=== PATIENT | male | born 1985 | race Caucasian/White ===

== ENCOUNTER 2017-06-06 14:14 | Emergency (ER) | payer MEDICAID, OTHER ==
[2017-06-06] MEDS ORDERED: FLUORESCEIN SODIUM 1 MG STRIP OP ONE (15:08)
[2017-06-06] MEDS ORDERED: PROPARACAINE 0.5% 15 ML OPHT DROP ONE (15:08)
--- NOTE | 2017-06-06 15:27 | EDPHY ---
H & P Stated Complaint: Eyes are irritated;also wants refill Alprazolan Time Seen by Provider: 06/06/17 15:25 HPI/ROS: CHIEF COMPLAINT: Eye pain. HISTORY OF PRESENT ILLNESS: This patient is a 32 year old individual, identifying as female, complaining of bilateral eye pain and watery discharge greater in the left eye than the right, onset earlier today. She states someone else has recently had a similar infection. She endorses subjective fever, sinus congestion and drainage. She does not currently wear contacts or corrective lenses, although they have been prescribed. She has not had change in vision. No eye trauma. She does not have a foreign body sensation. She denies headache. The patient also has anxiety, and states her prescription for Alprazolam ran out a couple months ago. She states she has "anxiety so bad my chest hurts" but has not been able to fill her prescription, as she was released from snf 3 days ago. The patient is staying at the local alf, and does not have a primary care physician yet. REVIEW OF SYSTEMS: A ten point review of systems was performed and is negative with the exception of the items mentioned in the HPI. - Personal History Current Tetanus Diphtheria and Acellular Pertussis (TDAP): Yes Tetanus Vaccine Date: 5 years - Medical/Surgical History PMH: 1. Bipolar 2. Anxiety 3. Chronic back pain 4. Insomnia 5. Kidney stones Hx Asthma: No Hx Chronic Respiratory Disease: No Hx Diabetes: No Hx Cardiac Disease: No Hx Renal Disease: No Hx Cirrhosis: No Hx Alcoholism: No Hx HIV/AIDS: No Hx Splenectomy or Spleen Trauma: No Other PMH: Bipolar, chronic back pain, anxiety, insomnia, KIDNEY STONES - Social History Smoking Status: Current every day smoker Additional Social History: Staying at the [facility]. - Physical Exam Exam: General Appearance: Alert. Vital signs reviewed. Blood pressure 143/90, heart rate 118 at triage. Eyes: Visual Acuity: noted from Nurse's notes. Patient stated that she was unable to read the vision chart but she is able to read printed material, easily identified and counts fingers. Pupils:equal round and reactive to light, EOMI Lids: no edema or swelling Skin: no proptosis, no periorbital erythema or swelling, no vesicles Conjunctivae: Injected bilaterally, no discharge Cornea: exam with fluorescein shows no corneal abrasion. Anterior chamber: normal, no hyphema or hypopyon ENT, Mouth: Dry oral mucosa, no oropharyngeal erythema or edema. Bilateral maxillary sinus tenderness. Neck: No lymphadenopathy, supple. Respiratory: Lungs are clear to auscultation; no wheezes, rales, or rhonchi. Cardiovascular: Mildly tachycardic; no murmur, rub, or gallop. Gastrointestinal: Abdomen is soft and nontender, no masses or organomegaly, bowel sounds normal. Skin: Warm and dry, no rashes on exposed skin, normal color. Back: Nontender to palpation over the thoracolumbar spine. No CVAT. Neurological: Alert and oriented. Moving all four extremities easily and equally. Psychiatric: Somewhat anxious affect. Constitutional: Initial Vital Signs Temperature (C) 37.7 C 06/06/17 14:28 Heart Rate 118 H 06/06/17 14:28 Respiratory Rate 18 06/06/17 14:28 Blood Pressure 143/90 H 06/06/17 14:28 O2 Sat (%) 95 06/06/17 14:28 O2 Delivery Mode Room Air Allergies/Adverse Reactions: No Known Allergies Allergy (Verified 06/06/17 14:24) Home Medications: Medication Instructions Recorded Zolpidem Tartrate [Ambien 5MG (*)] 10 mg PO HS PRN #10 tab 04/29/15 ALPRAZolam [Xanax 1 MG (*)] 1 mg PO TID PRN 11/04/16 Atomoxetine HCl [Strattera] 100 mg PO DAILY 11/04/16 Bupropion HCl [Wellbutrin Sr] 200 mg PO BID 11/04/16 Finasteride [Proscar 5 MG (*)] 5 mg PO HS 11/04/16 Spironolactone 50 mg PO BID 11/04/16 Trihexyphenidyl HCl 5 mg PO BID 11/04/16 Venlafaxine HCl [Venlafaxine 75MG 150 mg PO DAILY 11/04/16 (*)] Estradiol [Estrace] 2 mg PO BID #10 tablet 11/05/16 Pregabalin [Lyrica] 300 mg PO BID #10 capsule 11/05/16 AZITHROMYCIN [Z-PACK] 250 mg PO DAILY #6 tab 06/06/17 Zolpidem Tartrate [Ambien] 5 mg PO HS #3 tablet 06/06/17 Medical Decision Making ED Course/Re-evaluation: This patient is a 32 year old individual presenting with bilateral eye pain and watery discharge. Physical exam reveals conjunctival injection bilaterally, worse on the left than on the right. No evidence of retained foreign body, corneal abrasion, keratitis, iritis on exam. Suspect viral conjunctivitis, possible sinus infection. We discussed the likelihood of both of these problems being a viral. She does report subjective fever and persistence of sinus symptoms. Plan to discharge home in good condition with prescription for Zithromax to treat sinus symptoms. I do not think that she needs antibiotic eyedrops. She is wearing eye makeup and I have recommended that she not were eye makeup as long she has this infection. We also discussed symptomatic treatment. The patient will follow up with [facility] to establish care and management of medications. Case management involved. She is requesting a prescription for benzodiazepines to treat her anxiety. I have declined to write a prescription. The patient is comfortable with this plan. Departure - Departure Disposition: Home, Routine, Self-Care Clinical Impression: Viral conjunctivitis of both eyes Sinusitis Qualifiers: Sinusitis location: maxillary Chronicity: subacute Qualified Code(s): J01.00 - Acute maxillary sinusitis, unspecified Condition: Good Instructions: Sinusitis (ED), Conjunctivitis (ED) Additional Instructions: 1. Take your antibiotics as prescribed for sinusitis. It is important to finish your entire course of antibiotics. 2. Follow up with [facility] tomorrow to discuss your medication regimen. Follow up with a primary care provider at the [facility] if needed for primary care to establish care. Contact information for the clinic is attached. 3. Return to the emergency department if you develop changes in your vision or other worsening of condition. [facility] [address] [place] [id number] Please arrive as close to 8:00 AM as possible for a walk-in intake appointment Referrals: [facility],. [Clinic] - As per Instructions Prescriptions: AZITHROMYCIN [Z-PACK] 250 mg PO DAILY #6 tab Zolpidem Tartrate [Ambien] 5 mg PO HS #3 tablet Report Scribed for: Destiny Rangel Report Scribed by: Erika Orellana Date of Report: 06/06/17 Time of Report: 15:51 Physician Review and Approval Statement: 06/06/17 15:26 Portions of this note were transcribed by the director medical surgical. I, Dr. Destiny Rangel, personally performed the history, physical exam, and medical decision- making; and confirmed the accuracy of the information in the transcribed note.
[2017-06-06 16:23] VITALS: BP 139/86; PULSE 99; RESP 16; TEMP 99; O2SAT 94
== END 2017-06-06 16:23 | disposition home or self-care (01) ==
DX: B30.9 Viral conjunctivitis, unspecified (principal); J01.00 Acute maxillary sinusitis, unspecified; F17.200 Nicotine dependence, unspecified, uncomplicated

== ENCOUNTER 2017-06-13 06:01 | Emergency (ER) | payer MEDICAID ==
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
[2017-06-13] MEDS ORDERED: IBUPROFEN 600 MG TAB PO ONE (06:31)
[2017-06-13] MEDS ORDERED: ACETAMINOPHEN 500 MG TAB PO ONE (06:37)
[2017-06-13 07:28] LABS: % IMMATURE GRANULYOCYTES 0.6 % (0.0-1.1); ABSOLUTE IMMATURE GRANULOCYTES 0.06 10^3/uL (0.00-0.10); ADD DIFF? NO; ADD MORPH? NO; ADD SCAN? NO; ATYPICAL LYMPHOCYTE FLAG 10 (0-99); FRAGMENT RBC FLAG 0 (0-99); HEMATOCRIT 44.9 % (40.0-51.0); HEMOGLOBIN 15.5 g/dL (13.7-17.5); LEFT SHIFT FLG 0 (0-99); LIPEMIA HEMOLYSIS FLAG 90 (0-99); MEAN CELL HEMOGLOBIN 30.4 pg (27.9-34.1); MEAN CELL HEMOGLOBIN CONCENTR. 34.5 g/dL (32.4-36.7); MEAN PLATELET VOLUME 10.4 fL (8.7-11.7); PLATELET CLUMPS FLAG 0 (0-99); PLATELET COUNT 288 10^3/uL (150-400); RED CELL DISTRIBUTION WIDTH 11.9 % (11.5-15.2)
[2017-06-13] MEDS ORDERED: SPIRONOLACTONE 50 MG TAB PO ONE (07:32)
[2017-06-13] MEDS ORDERED: VENLAFAXINE HCL 75 MG TAB PO ONE (07:33)
[2017-06-13] MEDS ORDERED: PREGABALIN 150 MG CAP PO ONE (07:33)
[2017-06-13] MEDS ORDERED: ATOMOXETINE 25 MG CAP PO ONE (07:34)
[2017-06-13] MEDS ORDERED: ESTRADIOL 1 MG TAB PO ONE (07:34)
[2017-06-13] MEDS ORDERED: buPROPion SR 150 MG TAB PO ONE (07:36)
[2017-06-13 07:46] LABS: ANION GAP 10 mEq/L (8-16); CALCIUM 9.2 mg/dL (8.5-10.4); CARBON DIOXIDE 23 mEq/l (22-31); CHLORIDE 109 mEq/L (97-110); CREATININE 0.8 mg/dL (0.7-1.3); ETHANOL SERUM < 10 mg/dL (0-10); GLOMERULAR FILTRATION RATE > 60; GLUCOSE 95 mg/dL (70-100); POTASSIUM 4.2 mEq/L (3.5-5.2); SODIUM 142 mEq/L (134-144)
[2017-06-13] MEDS ORDERED: buPROPion SR 100 MG TAB PO ONE (08:00)
[2017-06-13] MEDS ORDERED: NICOTINE 14 MG/24 HR PATCH TD ONE (11:46)
[2017-06-13] MEDS ORDERED: NICOTINE 21 MG/24 HR PATCH TD ONE ×2 (11:55→11:58)
[2017-06-13 17:43] VITALS: BP 126/88; PULSE 70; RESP 18; TEMP 97.9; O2SAT 95
== END 2017-06-13 17:43 | disposition home or self-care (01) ==
LOC: EDUNIT#
DX: S93.504A Unspecified sprain of right lesser toe(s), initial encounter (principal); F17.200 Nicotine dependence, unspecified, uncomplicated; W20.8XXA Other cause of strike by thrown, projected or falling object, initial encounter
CPT/HCPCS: 80305; G0480

== ENCOUNTER 2017-06-14 11:02 | Emergency (ER) | payer MEDICAID ==
[2017-06-14 11:13] VITALS: BP 148/92; PULSE 87; RESP 18; TEMP 97.5; O2SAT 97
--- NOTE | 2017-06-14 12:02 | EDPHY ---
H & P Stated Complaint: Sent from [facility] for RX Ambien & Xanax;wants blister on foot checked Time Seen by Provider: 06/14/17 11:47 HPI/ROS: CHIEF COMPLAINT: Requesting prescriptions HISTORY OF PRESENT ILLNESS: The patient is a 32 y/o male arriving from the [facility] complaining of withdrawal from all his medications stating, "they won't write prescriptions for the Xanax or Ambien so they sent me here." He states they will prescribe all of his other medications. He complains of sweating, myalgias, and feeling "like crap." He was seen here yesterday for right small toe pain and depression and was discharged voluntarily to the [facility]. No SI/HI. REVIEW OF SYSTEMS: Constitutional: No fever, no chills Eyes: No visual changes ENT: No sore throat Respiratory: No cough, no shortness of breath Cardiac: No chest pain Gastrointestinal: No nausea, no vomiting, no abdominal pain Genitourinary: No hematuria, no dysuria Musculoskeletal: No leg pain or swelling Skin: No rash Neurological: No headache, no numbness, no weakness Psychiatric: see HPI - Personal History Current Tetanus Diphtheria and Acellular Pertussis (TDAP): Yes Tetanus Vaccine Date: 5 years - Medical/Surgical History PMH: Bipolar, substance abuse Hx Asthma: No Hx Chronic Respiratory Disease: No Hx Diabetes: No Hx Cardiac Disease: No Hx Renal Disease: No Hx Cirrhosis: No Hx Alcoholism: No Hx HIV/AIDS: No Hx Splenectomy or Spleen Trauma: No Other PMH: Bipolar, chronic back pain, anxiety, insomnia, KIDNEY STONES, adhd - Social History Smoking Status: Current every day smoker Additional Social History: Homeless, transgender, smoker, currently living at [facility]. - Physical Exam Exam: General Appearance: Alert, well-appearing Eyes: Pupils equal and round ENT, Mouth: Mucous membranes moist Neck: Normal inspection Respiratory: Lungs are clear to auscultation Cardiovascular: Regular rate and rhythm Neurological: A&O, nonfocal, normal gait Skin: Warm and dry, no rash Extremities: normal inspection Psychiatric: flat affect Constitutional: Initial Vital Signs Temperature (C) 36.4 C 06/14/17 11:10 Heart Rate 87 06/14/17 11:10 Respiratory Rate 18 06/14/17 11:10 Blood Pressure 148/92 H 06/14/17 11:10 O2 Sat (%) 97 06/14/17 11:10 O2 Delivery Mode Room Air Allergies/Adverse Reactions: ibuprofen Allergy (Verified 06/14/17 11:09) Home Medications: Medication Instructions Recorded Atomoxetine HCl [Strattera] 100 mg PO DAILY 11/04/16 Bupropion HCl [Wellbutrin Sr] 200 mg PO BID 11/04/16 Spironolactone 50 mg PO BID 11/04/16 Venlafaxine HCl [Venlafaxine 75MG 150 mg PO DAILY 11/04/16 (*)] Estradiol [Estrace] 2 mg PO BID #10 tablet 11/05/16 Pregabalin [Lyrica] 300 mg PO BID #10 capsule 11/05/16 Emtricitabine/Tenofovir [Truvada 1 tab PO DAILY #28 tab 06/13/17 200MG/300MG (*)] Raltegravir [Isentress] 400 mg PO BID #28 tab 06/13/17 Medical Decision Making ED Course/Re-evaluation: This is a well-appearing 32 y/o male requesting refills for Ambien and Xanax. His exam is unremarkable without objective evidence of withdrawal. I discussed his situation with case management. She will with him to get outpatient follow up arranged today at [facility]. Patient agrees with this plan and will be discharged in good condition. Departure - Departure Disposition: Home, Routine, Self-Care Clinical Impression: Anxiety Condition: Good Instructions: Anxiety (ED) Additional Instructions: Follow up with [facility] today. Please be advised the Emergency Department does not prescribe controlled substances for chronic conditions. Follow up with mental health and withdrawal services as directed by disease case manager rn. [facility] Crisis Line: [phone] [facility] [phone] Referrals: NONE *PRIMARY CARE P,. [Primary Care Provider] - As per Instructions [facility],. [Clinic] - As per Instructions Report Scribed for: Amira Panchal Report Scribed by: Priya Gao Date of Report: 06/14/17 Time of Report: 12:02 Physician Review and Approval Statement: 06/14/17 12:02 Portions of this note were transcribed by a medical parasitologist. I personally performed a history, physical exam, medical decision making, and confirmed accuracy of information the transcribed note.
== END 2017-06-14 13:03 | disposition home or self-care (01) ==
DX: F41.9 Anxiety disorder, unspecified (principal); F17.200 Nicotine dependence, unspecified, uncomplicated

== ENCOUNTER 2017-08-22 20:34 | Emergency (ER) | payer MEDICAID ==
--- NOTE | 2017-08-22 20:45 | EDPHY ---
H & P HPI/ROS: HPI CHIEF COMPLAINT: Suicidal ideation HISTORY OF PRESENT ILLNESS: This patient 32-year-old male, history of bipolar disorder on his medications, history of anxiety and depression, presents to the emergency room suicide ideation. He states that he was driving by and saw that it said emergency on the building and checked into the emergency room stating that he suicidal plan to cut his wrist. He has been on M1 hold before. He is homeless. Patient denies any ingestion of substance. Denies alcohol or drugs. Past Medical History: Bipolar disorder, anxiety, depression, hormone replacement, transitioning male to female. Past Surgical History: No recent surgery Social History: Denies illicit drugs, or alcohol. Does smoke tobacco. Family History: Noncontributory ROS REVIEW OF SYSTEMS: A comprehensive 10 point review of systems is otherwise negative aside from elements mentioned in the history of present illness. Exam Constitutional triage nursing summary reviewed, vital signs reviewed, awake/ alert. Eyes normal conjunctivae and sclera, EOMI, PERRLA. HENT normal inspection, atraumatic, moist mucus membranes, no epistaxis, neck supple/ no meningismus, no raccoon eyes. Respiratory clear to auscultation bilaterally, normal breath sounds, no respiratory distress, no wheezing. Cardiovascular rate normal, regular rhythm, no murmur, no edema, distal pulses normal. Gastrointestinal soft, non-tender, no rebound, no guarding, normal bowel sounds, no distension, no pulsatile mass. Genitourinary no CVA tenderness. Musculoskeletal no midline vertebral tenderness, full range of motion, no calf swelling, no tenderness of extremities, no meningismus, good pulses, neurovascularly intact. Skin pink, warm, & dry, no rash, skin atraumatic. Neurologic awake, alert and oriented x 3, AAOx3, moves all 4 extremities equally, motor intact, sensory intact, CN II-XII intact, normal cerebellar, normal vision, normal speech. Psychiatric flat affect, suicidal Heme/Lymph/Immune no lymphadenopathy. Differential Diagnosis: Includes but is not limited to in a particular order suicidal ideation, bipolar disorder, depression, anxiety, mood disorder, substance abuse. Medical Decision Making: Plan for this patient blood draw for medical clearance. And then patient be transferred over to [facility] emergency room on M1 hold. Patient cannot stay here on M1 hold as we do not have the appropriate resources in staff and security. I placed the patient on M1 hold. I have set up transfer from [facility] ER to [facility] emergency room. Dr. Amira Panchal the attending at [facility] ER has accepted the patient. Re-evaluation: 2044: Spoke with Wicho manuel RN at [facility]. They are not on psychiatric divert. Appropriate transfer will be set up. 2049: Patient on m1 hold for SI. Transfer set up. M1 Filled out. I have updated the patient this time he agrees for this plan. M1 hold. Transfer to [facility] ER. Additionally patient reports that he just was released from half-way. Source: Patient - Personal History Tetanus Vaccine Date: 5 years - Medical/Surgical History Hx Asthma: No Hx Chronic Respiratory Disease: No Hx Diabetes: No Hx Cardiac Disease: No Hx Renal Disease: No Hx Cirrhosis: No Hx Alcoholism: No Hx HIV/AIDS: No Hx Splenectomy or Spleen Trauma: No Other PMH: Bipolar, chronic back pain, anxiety, insomnia, KIDNEY STONES, adhd - Social History Smoking Status: Current every day smoker Constitutional: Initial Vital Signs Temperature (C) 36.8 C 08/22/17 20:47 Heart Rate 114 H 08/22/17 20:47 Respiratory Rate 16 08/22/17 20:47 Blood Pressure 126/82 H 08/22/17 20:47 O2 Sat (%) 96 08/22/17 20:47 O2 Delivery Mode Room Air Allergies/Adverse Reactions: ibuprofen Allergy (Verified 06/14/17 11:09) Home Medications: Medication Instructions Recorded Atomoxetine HCl [Strattera] 100 mg PO DAILY 11/04/16 Bupropion HCl [Wellbutrin Sr] 200 mg PO BID 11/04/16 Spironolactone 50 mg PO BID 11/04/16 Estradiol [Estrace] 2 mg PO BID #10 tablet 11/05/16 Pregabalin [Lyrica] 300 mg PO BID #10 capsule 11/05/16 Emtricitabine/Tenofovir [Truvada 1 tab PO DAILY #28 tab 06/13/17 200MG/300MG (*)] Raltegravir [Isentress] 400 mg PO BID #28 tab 06/13/17 Abilify 08/22/17 Departure - Departure Disposition: [facility] Clinical Impression: Suicidal ideation Condition: Fair Referrals: NONE *PRIMARY CARE P,. [Primary Care Provider] - As per Instructions
[2017-08-22 21:08] LABS: % IMMATURE GRANULYOCYTES 0.7 % (0.0-1.1); ABSOLUTE IMMATURE GRANULOCYTES 0.05 10^3/uL (0.00-0.10); ADD DIFF? NO; ADD MORPH? NO; ADD SCAN? NO; ATYPICAL LYMPHOCYTE FLAG 0 (0-99); FRAGMENT RBC FLAG 0 (0-99); HEMATOCRIT 44.5 % (40.0-51.0); HEMOGLOBIN 15.7 g/dL (13.7-17.5); LEFT SHIFT FLG 0 (0-99); LIPEMIA HEMOLYSIS FLAG 90 (0-99); MEAN CELL HEMOGLOBIN 31.5 pg (27.9-34.1); MEAN CELL HEMOGLOBIN CONCENTR. 35.3 g/dL (32.4-36.7); MEAN CELL VOLUME 89.2 fL (81.5-99.8); MEAN PLATELET VOLUME 10.1 fL (8.7-11.7); PLATELET CLUMPS FLAG 0 (0-99); PLATELET COUNT 305 10^3/uL (150-400); RED BLOOD CELL COUNT 4.99 10^6/uL (4.40-6.38); RED CELL DISTRIBUTION WIDTH 12.5 % (11.5-15.2)
[2017-08-22 21:21] LABS: ANION GAP 13 mEq/L (8-16); CALCIUM 9.3 mg/dL (8.5-10.4); CARBON DIOXIDE 27 mEq/l (22-31); CHLORIDE 101 mEq/L (97-110); CREATININE 0.8 mg/dL (0.7-1.3); GLOMERULAR FILTRATION RATE > 60; GLUCOSE 137 mg/dL (70-100); POTASSIUM 3.6 mEq/L (3.5-5.2); SODIUM 141 mEq/L (134-144)
[2017-08-22 23:31] VITALS: O2SAT 95
--- NOTE | 2017-08-23 05:50 | EDPHY ---
H & P Stated Complaint: pt. states suicidal thoughts for 4-5 days, states cutting Source: Patient, Old records - Personal History Tetanus Vaccine Date: 5 years - Medical/Surgical History Hx Asthma: No Hx Chronic Respiratory Disease: No Hx Diabetes: No Hx Cardiac Disease: No Hx Renal Disease: No Hx Cirrhosis: No Hx Alcoholism: No Hx HIV/AIDS: No Hx Splenectomy or Spleen Trauma: No Other PMH: Bipolar, chronic back pain, anxiety, insomnia, KIDNEY STONES, adhd - Social History Smoking Status: Current every day smoker HPI/ROS: HPI The patient presents with suicidal ideation, transferred from [facility] on a mental health hold. Apparently, she drove past the emergency department there and thought that he would stopping get checked out because he was feeling suicidal. She does have a history of suicidal ideation in the past , he is recently incarcerated.. REVIEW OF SYSTEMS Constitutional: No fever, no chills. Eyes: No discharge. ENT: No sore throat. Cardiovascular: No chest pain, no palpitations. Respiratory: No cough, no shortness of breath. Gastrointestinal: No abdominal pain, no vomiting. Genitourinary: No hematuria. Musculoskeletal: No back pain. Skin: No rashes. Neurological: No headache. PMHx: Bipolar disorder Soc Hx: Recently incarcerated PHYSICAL General Appearance: Alert, no distress Eyes: Pupils equal and round no pallor or injection ENT, Mouth: Mucous membranes moist Respiratory: Breathing comfortably Neurological: A&O, moves all extremities Skin: Warm and dry, no rashes Musculoskeletal: Neck is supple Extremities: symmetrical, full range of motion Psychiatric: Patient is oriented X 3, there is no agitation (Riguzzi,Deann) Constitutional: Initial Vital Signs Temperature (C) 36.8 C 08/22/17 20:47 Heart Rate 114 H 08/22/17 20:47 Respiratory Rate 16 08/22/17 20:47 Blood Pressure 126/82 H 08/22/17 20:47 O2 Sat (%) 96 08/22/17 20:47 O2 Delivery Mode Room Air Allergies/Adverse Reactions: ibuprofen Allergy (Verified 06/14/17 11:09) Home Medications: Medication Instructions Recorded Atomoxetine HCl [Strattera] 100 mg PO DAILY 11/04/16 Spironolactone 50 mg PO BID 11/04/16 Pregabalin [Lyrica] 300 mg PO BID #10 capsule 11/05/16 ARIPIPRAZOLE 10 mg PO DAILY 08/23/17 Atomoxetine HCl [Strattera] 100 mg PO DAILY 08/23/17 Estradiol [Estradiol 1 MG (*)] 3 mg PO BID 08/23/17 FLUoxetine 60 mg PO DAILY 08/23/17 Finasteride [Proscar 5 MG (*)] 5 mg PO DAILY 08/23/17 Venlafaxine 75MG (*) 75 mg PO BID 08/23/17 Zolpidem Tartrate [Ambien 10 mg] 10 mg PO DAILY AT 9PM 08/23/17 buPROPion XL [Wellbutrin Xl] 300 mg PO DAILY 08/23/17 Medical Decision Making ED Course/Re-evaluation: 745: The patient is signed out to me at change of shift by Dr. Li. The patient is awaiting evaluation by Psychiatric Services. I rechecked the patient while here. She was stable. I discussed the case with case management. Patient is no longer suicidal. Patient has been given resources. She feels comfortable with discharge. She was given warnings prior to leaving. (Lottie Craven) Differential Diagnosis: 32-year-old male to female transgender patient presents with suicidal ideation, placed on an M1 hold at [facility] and transferred here for mental health evaluation. Labs are unremarkable. Patient will await mental health evaluation. Differential diagnosis includes suicidal ideation due to bipolar disorder, stress response, substance abuse. In the emergency department, the patient remained stable. Mental health came to evaluate her at about 215 in the morning and was unable to complete interview due to patient sedation. She has not received any medication from us , however may be tired for other reasons. Mental health will return in the a.m. morning later to re-evaluate. (Deann Li) - Data Points Laboratory Results: Laboratory Results 08/22/17 20:52 08/22/17 20:52 08/23/17 08/22/17 07:49 22:45 Urine Opiates Screen NEGATIVE NEGATIVE (NEGATIVE) (NEGATIVE) Urine Barbiturates NEGATIVE NEGATIVE (NEGATIVE) (NEGATIVE) Ur Phencyclidine Scrn NEGATIVE NEGATIVE (NEGATIVE) (NEGATIVE) Ur Amphetamine Screen NEGATIVE NEGATIVE (NEGATIVE) (NEGATIVE) U Benzodiazepines Scrn NEGATIVE NEGATIVE (NEGATIVE) (NEGATIVE) Urine Cocaine Screen NEGATIVE NEGATIVE (NEGATIVE) (NEGATIVE) U Marijuana (THC) Screen NEGATIVE NEGATIVE (NEGATIVE) (NEGATIVE) Medications Given: Aripiprazole (Abilify) 10 mg PO DAILY AUBREY Stop: 02/19/18 08:59 Last Admin: 08/23/17 10:13 Dose: 10 mg Bupropion HCl (Wellbutrin Xl) 300 mg PO DAILY AUBREY Stop: 02/19/18 08:59 Last Admin: 08/23/17 10:16 Dose: 300 mg Estradiol (Estradiol) 3 mg PO DAILY AUBREY Stop: 02/19/18 08:59 Last Admin: 08/23/17 10:15 Dose: 3 mg Finasteride (Proscar) 5 mg PO DAILY AUBREY Stop: 02/19/18 08:59 Last Admin: 08/23/17 10:14 Dose: 5 mg Fluoxetine HCl (Prozac) 60 mg PO DAILY AUBREY Stop: 02/19/18 08:59 Last Admin: 08/23/17 10:13 Dose: 60 mg Pregabalin (Lyrica) 300 mg PO BID AUBREY Stop: 02/19/18 08:59 Last Admin: 08/23/17 10:15 Dose: 300 mg Spironolactone (Aldactone) 50 mg PO DAILY AUBREY Stop: 02/19/18 08:44 Last Admin: 08/23/17 10:48 Dose: Not Given Venlafaxine HCl (Venlafaxine Hcl) 75 mg PO BID AUBREY Stop: 02/19/18 08:59 Last Admin: 08/23/17 10:12 Dose: 75 mg Departure - Departure Disposition: Home, Routine, Self-Care Clinical Impression: Suicidal ideation Condition: Fair Instructions: Depression (ED) Referrals: NONE *PRIMARY CARE P,. [Primary Care Provider] - As per Instructions
[2017-08-23] MEDS ORDERED: ZOLPIDEM TARTRATE 5 MG TAB PO PRN (08:50)
[2017-08-23] MEDS ORDERED: VENLAFAXINE HCL 75 MG TAB PO SCH (09:00)
[2017-08-23] MEDS ORDERED: ARIPiprazole 10 MG TAB PO SCH (09:00)
[2017-08-23] MEDS ORDERED: buPROPion XL 150 MG TAB PO SCH (09:00)
[2017-08-23] MEDS ORDERED: ESTRADIOL 1 MG TAB PO SCH (09:00)
[2017-08-23] MEDS ORDERED: FINASTERIDE 5 MG TAB PO SCH (09:00)
[2017-08-23] MEDS ORDERED: PREGABALIN 150 MG CAP PO SCH (09:00)
[2017-08-23] MEDS ORDERED: FLUoxetine 20 MG CAP PO SCH (09:00)
[2017-08-23] MEDS: SPIRONOLACTONE 50 MG TAB PO SCH ×2 (10:14→10:48)
[2017-08-23 12:52] VITALS: BP 128/74; PULSE 75; RESP 18; TEMP 97.9
== END 2017-08-23 13:07 | disposition home or self-care (01) ==
LOC: CED 20:34
DX: R45.851 Suicidal ideations (principal); F17.200 Nicotine dependence, unspecified, uncomplicated
CPT/HCPCS: 80048-PO; 80305; 85025-PO

== ENCOUNTER 2017-08-23 13:50 | Emergency (ER) | payer MEDICAID ==
[2017-08-23 13:58] VITALS: BP 141/98; PULSE 98; RESP 16; TEMP 98.1; O2SAT 94
[2017-08-23] MEDS ORDERED: PENICILLIN VK 500 MG TAB PO ONE (14:05)
[2017-08-23] MEDS ORDERED: KETOROLAC 30 MG/1 ML SDV IM ONE (14:05)
--- NOTE | 2017-08-23 14:07 | EDPHY ---
H & P Time Seen by Provider: 08/23/17 13:53 HPI/ROS: HPI Toothache. 32-year-old male transgender on foot. He complains of right lower molar tooth pain ongoing for 3 days. Worse today. He was just in our emergency department here and then transferred to [facility] yesterday for suicidal ideations. He was discharged after behavioral health evaluation this morning. He is not suicidal now. There is no history of dental trauma. He reports that he has had this tooth ache in the past. He is asking for pain medication. He has a history of substance abuse. I saw him in our emergency department at the [facility] back in April of 2015. He was brought into the emergency department at that time unresponsive. ROS: Constitutional: No fever, no chills. No weakness. ENT: No sore throat. No nasal congestion or rhinorrhea. As above. Musculoskeletal: No back pain. No neck pain. No myalgias or arthralgias. Skin: No rashes. Neurological: No headache. No focal weakness or altered sensation. Past medical history: Bipolar, chronic back pain, insomnia, attention deficit hyperactivity disorder, kidney stones, chronic pain, substance abuse. Social history: Smoker. Here by himself. Homeless. Denies alcohol. Physical Exam: General Appearance: Alert, no distress. This patient is responding to questions appropriately and in full sentences. This patient appears well- hydrated and well-nourished. Eyes: Pupils equal and round no pallor or injection. No lid edema, erythema or injection. ENT, Mouth: Mucous membranes are moist. The pharyngeal tissues are unremarkable. No edema or swelling. No asymmetry suggestive of abscess. No erythema or exudates. The right lower 3rd molar appears intact. There is no pauly gingival swelling or evidence of abscess. He does have some pain on axial compression of the tooth. No swelling of the buccal mucosa or associated facial swelling. Neurological: Motor sensory function is grossly intact. Cranial nerves are normal. Gait is normal. Skin: Warm and dry, no rashes. Musculoskeletal: Neck is supple and nontender. No cervical or submental lymphadenopathy. Extremities are symmetrical. All joints range without pain or impingement. Psychiatric: No agitation. No depression. Database: EKG: Imaging: Procedures: Emergency department course: Vital signs reviewed. He is afebrile. Vital signs otherwise unremarkable. He was started on penicillin at 500 mg in the emergency department orally. I will prescribe him this medication on discharge. I explained to him that I would not give him any narcotic or opiate related medications. He states that he has an allergy to ibuprofen but is not allergic to Toradol and has had Toradol in the past. He was given 30 mg of intramuscular Toradol. He has normal renal function from his blood work yesterday. He was instructed to follow up with dental aide on Saturday for re-evaluation and further management. Return to emergency department precautions discussed. All of his questions were answered. He was discharged in good condition. Differential Diagnosis: The differential diagnosis on this patient includes but is not limited to toothache, apical abscess. Facial cellulitis, traumatic dental injury unlikely. This represents a partial list of diagnoses considered. These considerations are based on history, physical exam, past history, reassessment and diagnostic testing. Smoking Status: Current every day smoker Constitutional: Initial Vital Signs Temperature (C) 36.7 C 08/23/17 13:55 Heart Rate 98 08/23/17 13:55 Respiratory Rate 16 08/23/17 13:55 Blood Pressure 141/98 H 08/23/17 13:55 O2 Sat (%) 94 08/23/17 13:55 O2 Delivery Mode Room Air Allergies/Adverse Reactions: ibuprofen Allergy (Verified 08/23/17 13:58) Home Medications: Medication Instructions Recorded Spironolactone 50 mg PO BID 11/04/16 Pregabalin [Lyrica] 300 mg PO BID #10 capsule 11/05/16 Estradiol [Estradiol 1 MG (*)] 3 mg PO BID 08/23/17 Finasteride [Proscar 5 MG (*)] 5 mg PO DAILY 08/23/17 Penicillin V Potassium [Penicillin 500 mg PO QID #20 tablet 08/23/17 VK] Zolpidem Tartrate [Ambien 10 mg] 10 mg PO DAILY AT 9PM 08/23/17 buPROPion XL [Wellbutrin Xl] 300 mg PO DAILY 08/23/17 Medical Decision Making - Data Points Medications Given: Discontinued Medications Ketorolac Tromethamine (Toradol) 30 mg IM EDNOW ONE Stop: 08/23/17 14:06 Last Admin: 08/23/17 14:10 Dose: 30 mg Penicillin V Potassium (Pen Vk) 500 mg PO EDNOW ONE PRN Reason: Protocol Stop: 08/23/17 14:06 Last Admin: 08/23/17 14:10 Dose: 500 mg Departure - Departure Disposition: Home, Routine, Self-Care Clinical Impression: Toothache Condition: Good Instructions: Toothache (ED) Additional Instructions: Read and follow provided instructions. Follow-up with dental aid in their clinic on Saturday for re-evaluation and any further management. Take medication as prescribed through entire course of treatment. Return to the emergency department for worsening symptoms or other serious concerns. Referrals: Dental Aid [Outside] - As per Instructions Prescriptions: Penicillin V Potassium [Penicillin VK] 500 mg PO QID #20 tablet
== END 2017-08-23 14:27 | disposition home or self-care (01) ==
LOC: CED 13:50
DX: K08.89 Other specified disorders of teeth and supporting structures (principal); F17.200 Nicotine dependence, unspecified, uncomplicated
CPT/HCPCS: J1885